=== PATIENT | male | born 1935 | race African-American/Black ===

== ENCOUNTER 2018-01-18 20:05 | Inpatient (IN) | payer MEDICARE, SELFPAY ==
[2018-01-18] VITALS (9 sets, daily range): BP systolic 80–146; BP diastolic 34–84; PULSE 67–87; RESP 24–28; TEMP 29.2–30.8; O2SAT 80–100; BMI 19.0
--- NOTE | 2018-01-18 20:16 | XR_ITS ---
XR chest AP HISTORY: ITS.REASON: weakness ORDERING PHYSICIAN: Jesus Arias MD PATIENT AGE: 82 years COMPARISON: 08/17/2017 FINDINGS: Study is very limited underpenetrated and rotated with multiple skin fold artifacts. There is normal heart size.. There is increased density in the right upper lobe laterally. This could be due to artifact or could be related to overlying pneumonia. Better quality exam suggested for further evaluation. IMPRESSION: Limited exam with possible right upper lobe pneumonia versus artifact
--- NOTE | 2018-01-18 20:16 | CT_ITS ---
CT head/brain wo con HISTORY: Continued, altered mental status, altered level consciousness, fall with weakness ITS.REASON: confused , weakness ORDERING PHYSICIAN: Jesus Arias MD PATIENT AGE: 82 years COMPARISON: 08/17/2017 TECHNIQUE: Axial images obtained without contrast. Brain and bone windows reviewed. All CT scans at the facility use one or more dose reduction, viz: automated exposure control; ma/kV adjustment per patient size (including targeted exams where dose is matched to indication; i.e. head); or iterative reconstruction technique. FINDINGS: No midline shift, mass effect, intracranial hemorrhage, hydrocephalus, or extra-axial fluid collection is evident. There is generalized atrophy. No midline shift, mass effect, intracranial hemorrhage, or hydrocephalus. Periventricular ischemic gliotic changes are present. There is old lacunar infarction in the left basal ganglia and posterior aspect of the caudate nucleus. The calvarium has an unremarkable appearance. No mastoid effusion. There is mild mucosal thickening of paranasal sinuses.. IMPRESSION: 1. No acute intracranial findings. 2. Atrophy with chronic ischemic changes with an old left-sided lacunar infarction. 3. Mild sinus disease.
[2018-01-18 20:29] LABS: ABG Base Excess -16.8 mmol/L (-2.4-2.3); ABG HCO3 11.5 mmhg (22.0-26.0); ABG Oxygen Saturation 97 % (90-100); ABG PCO2 31.1 mmhg (35.0-45.0); ABG TCO2 12.4 mmhg (23-27)
--- NOTE | 2018-01-18 20:31 | XR_ITS ---
XR pelvis 1-2V HISTORY: Fall with injury and pain ITS.REASON: fall ORDERING PHYSICIAN: Jesus Arias MD PATIENT AGE: 82 years COMPARISON: None FINDINGS: No acute fracture or dislocation apparent. Osteoarthritic changes are present at the hips. There is mild amount retained colonic feces. IMPRESSION: Osteoarthritis of the hips, no definite acute fracture
--- NOTE | 2018-01-18 20:31 | CT_ITS ---
CT cervical spine wo con INDICATION: Neck pain following injury ITS.REASON: fall ORDERING PHYSICIAN: Jesus Arias MD PATIENT AGE: 82 years COMPARISON: None TECHNIQUE: Axial images are obtained without contrast. Sagittal and coronal reformatted images are reviewed as well. All CT scans at the facility use one or more dose reduction, viz: automated exposure control; ma/kV adjustment per patient size (including targeted exams where dose is matched to indication; i.e. head); or iterative reconstruction technique. FINDINGS: There is normal alignment. No acute fracture or dislocation is evident. There is multilevel degenerative disc disease. There is diffuse Idiopathic skeletal hyperostosis from C2 to C7. C2-C3: Mild degenerative disc disease. Small central disc protrusion slightly eccentric towards the left. C3-C4: Mild degenerative disc disease. C4-C5: Degenerative disc disease. C5-C6: Degenerative disc disease with endplate hypertrophic change and facet and uncovertebral hypertrophy with bilateral foraminal narrowing. C6-C7: Degenerative disc disease with endplate osteophytes and moderate uncovertebral hypertrophy with moderate bilateral foraminal narrowing. C7-T1: Facet hypertrophic change with mild bilateral foraminal narrowing. Fibrotic changes are present in the lung apices. IMPRESSION: 1. No acute fracture. 2. Multilevel cervical spondylosis with degenerative disc disease, endplate hypertrophy, and facet arthropathy. Please see above for detail description at each level 3. DISH of the cervical spine
[2018-01-18 20:45] LABS: Basophils % 0.2 % (0.1-2.0); Eosinophils % 0.2 % (0.1-12.0); Hematocrit 39.9 % (42.0-52.0); Hemoglobin 12.1 g/dL (14.1-18.0); Lymphocytes # 0.4 K/mm3 (0.7-4.5); Mean Corpuscular HGB Conc 30.4 g/dL (31.8-35.4); Mean Corpuscular Hemoglobin 28.7 pg (27.0-31.2); Mean Corpuscular Volume 94.5 fl (80-94); Mean Platelet Volume 7.7 fl (7.4-10.4); Monocytes # 0.3 K/mm3 (0.1-1.0); Monocytes % 3.9 % (1.7-9.3); Neutrophils # 8.1 K/mm3 (1.8-7.8); Neutrophils % 91.7 % (37.0-80.0); Platelet Count 476 K/mm3 (142-424); Red Blood Count 4.22 M/mm3 (4.60-6.20); Red Cell Distribution Width 16.4 % (11.5-17.5); White Blood Count 8.8 K/mm3 (4.8-10.8)
[2018-01-18 20:47] LABS: MANUAL DIFFERENTIAL MANUAL DIFFERENTIAL (MANUAL DIFF)
[2018-01-18 21:08] LABS: Lactic Acid 4.7 mmol/L (0.4-2.0)
--- NOTE | 2018-01-18 21:09 | PC.NURSE ---
lactic acid 4.[address] Arias
[2018-01-18 21:18] LABS: Lymphocytes % 5 % (10-50); Neutrophils % 81 % (42-76); Platelet Estimate Slight Decrease; Total Cells Counted 100
[2018-01-18 21:19] LABS: Hypochromasia 1+; Rouleaux 1+; Toxic Granulation 1+
[2018-01-18 21:30] LABS: Alanine Aminotransferase 78 U/L (12-78); Albumin Level 3.6 gm/dL (3.4-5.0); Albumin/Globulin Ratio 0.7 (1.1-1.8); Alkaline Phosphatase 115 U/L (46-116); Anion Gap 28.4 mEq/L (5-15); Aspartate Amino Transferase 255 U/L (15-37); Bilirubin,Total 0.8 mg/dL (0.2-1.0); Calcium 9.3 mg/dL (8.5-10.1); Carbon Dioxide 17 mmol/L (21.0-32.0); Chloride 106 mmol/L (98-107); Creatine Kinase 4387 U/L (39-308); Creatinine Clearance Estimated 19 mL/min (0-300); Estimated Glomerular Filt Rate 22 ml/min (>60); GFR (African American) 26 ML/MIN (>60); Globulin 4.9 gm/dl (1.3-3.2); Potassium 4.4 mmoL/L (3.5-5.1); Sodium 147 mmol/L (136-145); Total Protein,Serum 8.5 gm/dL (6.4-8.2); Troponin I 0.02 ng/ml (0.00-0.06)
[2018-01-18 21:31] LABS: Blood Urea Nitrogen 86 mg/dL (7-18); Creatine Kinase MB 131.7 ng/ml (0.0-3.6); Glucose 48 mg/dL (74-106)
--- NOTE | 2018-01-18 21:34 | PC.NURSE ---
Assisted taking patient to ct and xray for chest and pelvis. Back to room at this time. Sahil paws connected, will continue monitoring pt
--- NOTE | 2018-01-18 21:36 | PC.NURSE ---
critical labs glucose 48, ckmb 131.7, ck 4387, results reported to Dr. Arias
--- NOTE | 2018-01-18 21:45 | HMH.EDWEAK ---
ED Disposition Clinical Impression: Renal insufficiency Rhabdomyolysis Qualifiers: Rhabdomyolysis type: non-traumatic Qualified Code(s): M62.82 - Rhabdomyolysis Hypothermia Qualifiers: Encounter type: initial encounter Qualified Code(s): T68.XXXA - Hypothermia, initial encounter Aspiration pneumonia Qualifiers: Aspiration pneumonia type: unspecified Laterality: right Lung location: lower lobe of lung Qualified Code(s): J69.0 - Pneumonitis due to inhalation of food and vomit Disposition: Admitted As Inpatient Condition on Discharge: Serious - Critical Care Critical Care Time: Yes Attestation: On 01/18/18, the high probability of a clinically significant, sudden or life threatening deterioration of the following system(s) required my full and direct attention, intervention and personal management. The time I documented below is in addition to time spent performing reported procedures but includes the following listed in this critical care notation. Total Critical Care Time: 60 Vital system(s) involved:: Respiratory Failure My critical care processes included: Assessment & monitoring of V/S, Initial and Re-exams, Data Review/Interpretation, Coordinating Care Medical Decision Making - Medical Records Medical records reviewed: Yes: I reviewed the patient's medical records. - Christofer Inquiry Pt receiving controlled substance: No Vital Signs: 01/18/18 20:06 01/18/18 20:28 01/18/18 21:20 Temperature 84.5 F L 84.5 F L 84.6 F L Temperature Source Rectal Rectal Rectal Pulse Rate [Apical] 86 83 75 Respiratory Rate 24 24 24 Blood Pressure [Left Arm] 142/63 146/83 110/54 Blood Pressure Mean [Left Arm] 89 104 72 Blood Pressure Source [Left Arm] Automatic Cuff Automatic Cuff Automatic Cuff Blood Pressure Position [Left Arm] Left Lateral Left Lateral Supine 02 Sat by Pulse Oximetry 80 L 80 L 97 Oxygen Delivery Method Nasal Cannula Nasal Cannula Nasal Cannula Oxygen Flow Rate (LPM) 3 3 3 01/18/18 21:59 01/18/18 23:16 01/19/18 00:00 Temperature 84.6 F L 87.4 F L Temperature Source Rectal Rectal Pulse Rate [Apical] 87 82 Respiratory Rate 24 Blood Pressure [Left Arm] 108/61 95/61 Blood Pressure Mean [Left Arm] 76 72 Blood Pressure Source [Left Arm] Automatic Cuff Blood Pressure Position [Left Arm] Supine 02 Sat by Pulse Oximetry 99 Oxygen Delivery Method Nasal Cannula Oxygen Flow Rate (LPM) 3 50 01/19/18 01:30 Temperature 89.6 F L Temperature Source Rectal Pulse Rate [Apical] 75 Respiratory Rate 18 Blood Pressure [Left Arm] 120/76 Blood Pressure Mean [Left Arm] 90 Blood Pressure Source [Left Arm] Automatic Cuff Blood Pressure Position [Left Arm] Supine 02 Sat by Pulse Oximetry 100 Oxygen Delivery Method Mechanical Ventilation Oxygen Flow Rate (LPM) 50 - Lab Data Lab results reviewed: Yes: I reviewed the patient's lab results. Lab Results 01/18/18 20:15: WBC 8.8, RBC 4.22 L, Hgb 12.1 L, Hct 39.9 L, MCV 94.5 H, MCH 28.7, MCHC 30.4 L, RDW 16.4, Plt Count 476 H, MPV 7.7, Neut % (Auto) 91.7 H, Lymph % (Auto) 4.0 L, [place] % (Auto) 3.9, Eos % (Auto) 0.2, Baso % (Auto) 0.2, Neut # (Auto) 8.1 H, Lymph # (Auto) 0.4 L, [place] # (Auto) 0.3, Eos # (Auto) 0.0, Baso # (Auto) 0.0, Total Counted 100, Neutrophils % (Manual) 81 H, Band Neutrophils % 14.0 H, Lymphocytes % (Manual) 5 L, Toxic Granulation 1+, Platelet Estimate Slight decrease, RBC Morphology Not Reportable, Hypochromasia 1+, Rouleaux 1+ 01/18/18 20:15: Sodium 147 H, Potassium 4.4, Chloride 106, Carbon Dioxide 17 L, Anion Gap 28.4 H, BUN 86 H, Creatinine 2.80 H, Estimated Creat Clear 19, Estimated GFR 22 L, Est GFR ( Amer) 26 L, Glucose 48 L, Calcium 9.3, Total Bilirubin 0.8, AST 255 H, ALT 78, Alkaline Phosphatase 115, Total Creatine Kinase 4387 H*, CK-MB (CK-2) 131.7 H*, CK-MB (CK-2) Rel Index 3.0, Troponin I 0.02, Total Protein 8.5 H, Albumin 3.6, Globulin 4.9 H, Albumin/Globulin Ratio 0.7 L 01/18/18 20:15: Lactic Acid 4.7 H 01/18/18 20:15: Fazal
--- NOTE | 2018-01-18 21:48 | CT_ITS ---
CT hip RT wo con HISTORY: Hip pain following injury ITS.REASON: fall/abn plain film ORDERING PHYSICIAN: Mitul Souza MD PATIENT AGE: 82 years TECHNIQUE: Axial images are obtained along with sagittal and coronal reformats without contrast. All CT scans at the facility use one or more dose reduction, viz: automated exposure control; ma/kV adjustment per patient size (including targeted exams where dose is matched to indication; i.e. head); or iterative reconstruction technique. COMPARISON: Radiograph of the same day FINDINGS: There are osteoarthritic changes of the right hip with subarticular cystic changes, decreasing the joint space, sclerosis, and osteophyte formation. No obvious fracture or dislocation is evident. Degenerative changes right SI joint and lower lumbar spine IMPRESSION: 1. No acute fracture. 2. Osteoarthritis of the right hip
[2018-01-18 21:49] LABS: POC Glucose,Bedside 108 mg/dL (70-110)
--- NOTE | 2018-01-18 21:49 | ED_ITS ---
ED Disposition Clinical Impression: Renal insufficiency Rhabdomyolysis Qualifiers: Rhabdomyolysis type: non-traumatic Qualified Code(s): M62.82 - Rhabdomyolysis Hypothermia Qualifiers: Encounter type: initial encounter Qualified Code(s): T68.XXXA - Hypothermia, initial encounter Aspiration pneumonia Qualifiers: Aspiration pneumonia type: unspecified Laterality: right Lung location: lower lobe of lung Qualified Code(s): J69.0 - Pneumonitis due to inhalation of food and vomit Disposition: Admitted As Inpatient Condition on Discharge: Serious - Critical Care Critical Care Time: Yes Attestation: On 01/18/18, the high probability of a clinically significant, sudden or life threatening deterioration of the following system(s) required my full and direct attention, intervention and personal management. The time I documented below is in addition to time spent performing reported procedures but includes the following listed in this critical care notation. Total Critical Care Time: 60 Vital system(s) involved:: Respiratory Failure My critical care processes included: Assessment & monitoring of V/S, Initial and Re-exams, Data Review/Interpretation, Coordinating Care Medical Decision Making - Medical Records Medical records reviewed: Yes: I reviewed the patient's medical records. - Christofer Inquiry Pt receiving controlled substance: No Vital Signs: 01/18/18 20:06 01/18/18 20:28 01/18/18 21:20 Temperature 84.5 F L 84.5 F L 84.6 F L Temperature Source Rectal Rectal Rectal Pulse Rate [Apical] 86 83 75 Respiratory Rate 24 24 24 Blood Pressure [Left Arm] 142/63 146/83 110/54 Blood Pressure Mean [Left Arm] 89 104 72 Blood Pressure Source [Left Arm] Automatic Cuff Automatic Cuff Automatic Cuff Blood Pressure Position [Left Arm] Left Lateral Left Lateral Supine 02 Sat by Pulse Oximetry 80 L 80 L 97 Oxygen Delivery Method Nasal Cannula Nasal Cannula Nasal Cannula Oxygen Flow Rate (LPM) 3 3 3 01/18/18 21:59 01/18/18 23:16 01/19/18 00:00 Temperature 84.6 F L 87.4 F L Temperature Source Rectal Rectal Pulse Rate [Apical] 87 82 Respiratory Rate 24 Blood Pressure [Left Arm] 108/61 95/61 Blood Pressure Mean [Left Arm] 76 72 Blood Pressure Source [Left Arm] Automatic Cuff Blood Pressure Position [Left Arm] Supine 02 Sat by Pulse Oximetry 99 Oxygen Delivery Method Nasal Cannula Oxygen Flow Rate (LPM) 3 50 01/19/18 01:30 Temperature 89.6 F L Temperature Source Rectal Pulse Rate [Apical] 75 Respiratory Rate 18 Blood Pressure [Left Arm] 120/76 Blood Pressure Mean [Left Arm] 90 Blood Pressure Source [Left Arm] Automatic Cuff Blood Pressure Position [Left Arm] Supine 02 Sat by Pulse Oximetry 100 Oxygen Delivery Method Mechanical Ventilation Oxygen Flow Rate (LPM) 50 - Lab Data Lab results reviewed: Yes: I reviewed the patient's lab results. Lab Results 01/18/18 20:15: WBC 8.8, RBC 4.22 L, Hgb 12.1 L, Hct 39.9 L, MCV 94.5 H, MCH 28.7, MCHC 30.4 L, RDW 16.4, Plt Count 476 H, MPV 7.7, Neut % (Auto) 91.7 H, Lymph % (Auto) 4.0 L, [place] % (Auto) 3.9, Eos % (Auto) 0.2, Baso % (Auto) 0.2, Neut # (Auto) 8.1 H, Lymph # (Auto) 0.4 L, [place] # (Auto) 0.3, Eos # (Auto) 0.0, Baso # (Auto) 0.0, Total Counted 100, Neutrophils % (Manual) 81
[2018-01-18 21:57] LABS: Microscopic, Urine URINE MICROSCOPIC (MICROSCOPIC)
[2018-01-18 21:59] LABS: Appearance,Urine CLEAR (Clear); Blood, Urine 3+ (Negative); Color,Urine YELLOW (Yellow); Glucose,Urine (UA) Negative (Negative); Ketones,Urine 1+ (Negative); Leukocyte Esterase,Urine Negative (Negative); Nitrate,Urine Negative (Negative); PH,Urine 5.5 (5.0-8.5); Protein,Urine 1+ (Negative); Specific Gravity, Urine >= 1.030 (1.005-1.030); Urobilinogen,Urine 0.2 EU/dl (0.2)
--- NOTE | 2018-01-18 22:00 | PC.NURSE ---
In attempting to change out pt's iv line, EMS iv dislodged, new iv established # 20 in l upper arm. lact ringers wide open going in each iv. pt back to ct at this time with Livia Golden assisting.
[2018-01-18 22:08] LABS: Bilirubin,Urine 1+ (Negative)
[2018-01-18 22:09] LABS: Acetone, Serum (Rapid) None Detected (None Detect)
[2018-01-18 22:23] LABS: Amorphous Sediment,Urine 2+ /lpf; Bacteria,Urine 1+ /lpf; Hyaline Casts,Urine Occasional #/lpf (0); Squamous Epithelial Cell,Urine Occasional #/hpf (0-5); WBC,Urine Occasional #/hpf (0-3)
--- NOTE | 2018-01-18 23:36 | PC.NURSE ---
dr cramer spoke with dr benjamin
--- NOTE | 2018-01-18 23:37 | PC.NURSE ---
dr cramer speaking with dr mayes
[2018-01-18 23:57] LABS: Allen's Test Patient Unable
[2018-01-18 23:58] LABS: Source Right Radial
[2018-01-18 23:59] LABS: ABG PH 7.19 mmol/L (7.35-7.45)
[2018-01-19] VITALS (41 sets, daily range): BP systolic 60–157; BP diastolic 0–80; PULSE 72–810; RESP 16–34; TEMP 31.6–36.4; O2SAT 45–100; BMI 21.0
[2018-01-19 00:35] LABS: Reflex Lactic Add Lactic Reflex
--- NOTE | 2018-01-19 00:37 | PC.NURSE ---
[facility] mins ago with Fitz Mohan Clinical Education Specialist to get manual bp 81/50. Pt in view of station, suddenly pt's heart rate dropped to 40. Entered room to find pt unresponsive. Hooked up to zoll monitor - heart rate [address] Arias intubated with 7.0 tube without incident. Oxygenation currently 81% with bagging in process. Blood gas obtained and chest xray is being taken at this time. Pt will be admitted to ICU. Awaiting order process.
--- NOTE | 2018-01-19 00:39 | XR_ITS ---
XR chest portable HISTORY: Respiratory failure, evaluate tube placement ITS.REASON: tube placement ORDERING PHYSICIAN: Mitul Souza MD PATIENT AGE: 82 years COMPARISON: 01/18/2018 FINDINGS: Unremarkable cardiovascular structures. Endotracheal tube has been placed. The tip is at the T3 level and could be advanced 1.5 to 2 cm. Overlying artifact from monitoring devices. Chronic changes are noted with patchy density in the right lung base which may be due to developing infiltrate. The previously noted density in the right upper lobe is no longer apparent and was related to artifact. IMPRESSION: 1. Endotracheal tube tip at the T3 level and may be advanced 1.5 to 2 cm. 2. Chronic changes with right lower lobe atelectasis or infiltrate
[2018-01-19 01:33] LABS: Lactic Acid Follow Up (RFLX 1) 6.7 (0.4-2.0)
--- NOTE | 2018-01-19 01:34 | PC.NURSE ---
DR Arias speaking with Dr. Souza, lab called with critical lactic acid. increase to 6.7
--- NOTE | 2018-01-19 02:12 | PC.NURSE ---
Pt intubated with 7.0 21 at [facility]. rate 16, 0 ps, 0 peep, Fi02 - 50, TV -500. NG tube being placed at this time. Vital sign improved.
--- NOTE | 2018-01-19 02:15 | PC.NURSE ---
Temp 89.6 rectally, Sahil paws initiated - pt attempts to take off. Prior to intubation pt kept taking off, explained needed to keep on because he was so cold, pt voiced, 'I'm not cold. Furrther enriquez, adivsed pt he may not feel cold but he really is. He asked for some water, ice chips given. Currently pt is not cooperative with care. Awaiting House for admit location to be designated.
--- NOTE | 2018-01-19 02:34 | PC.NURSE ---
NG attempted unsuccessfully x 2. MD reported to hold for now.
[2018-01-19 03:07] LABS: Reflex Lactic (2 hrs) Add Lactic Reflex
--- NOTE | 2018-01-19 03:25 | PC.NURSE ---
Continuing to monitor in ER. Sahil Paws in place with Temp slowly rising. Pt responding well to ativan, resting, no objective s/s of pain. Will continue monitoring.
[2018-01-19 04:24] LABS: Lactic Acid Follow up (RFLX 2) 4.6 (0.4-2.0)
--- NOTE | 2018-01-19 04:32 | PC.NURSE ---
Upon moving pt to floor 0350, attempted to get bp manually in each arm. Unable to obtain per left arm r/t iv. Right arm manually 80/50. Temp 92.6 rectally, resp 17 - vent setting 16. Pt responds to pain and eyes close and open with light touch on eyelids. Pt currently staring in an upward position. [employer] from lab called lastic result of 4.6.
[2018-01-19 04:58] LABS: Glucose,Random 61 mg/dL (70-110)
[2018-01-19 05:12] LABS: Troponin I 0.05 ng/ml (0.00-0.06)
--- NOTE | 2018-01-19 07:03 | PC.NURSE ---
admission process was difficult, blood pressure obtained after many attempts, then began to drop - started Dopamine with blood pressure rising quickly, weaned dopamine off with blood pressure holding for approximately 1&1/2hours began dropping again, Dopamine restarted. Body temp low and difficult to obtain oxygen saturation however blood gas showed oxygenation good arterial 02 - 97.3. Rectal temps have been climbing slowly from arrival in ED at 84.5, currently 93.0 rectally with sonya paws in place. Unknown how long pt was down - neighbor heard him knocking on the wall, checked on him and called 911. Checked fingerstick - to low to read - amp D50 given with fsbs coming up to 205 and D5ns replaced LR. Sepsis protocol followed with pt receiving 4 liter of fluids in ED and continued upon floor. Urine output from arrival until meter changed during admission was 250. Little 3-5 ml out following switch to urine meter. Pt bathed with caked feces removed with much effort. Tyson hose in place, staff at bs. Pt remained safe this shift. Shift report given at bs to Philippe Juan RN at this time.
--- NOTE | 2018-01-19 07:21 | PC.NURSE ---
Dopamine retarted at 14 mcg/kg/min r/t blood pressure dropping again, Philippe Day given information.
--- NOTE | 2018-01-19 08:04 | PC.NURSE ---
Addendum entered by Philippe Juan RN 01/19/18 08:21: DECREASED TO 12 MCG/KG/MIN. Original Note: DOPAMINE AT 14 MCG/KG/MIN WITH BP OF 166 SYSTOLIC. DRIP DECREASED AT THIS TIME TO 11 MCG/KG/MIN. BLOOD PRESSURE AT THIS TIME 0800 137/80. WILL CONTINUE TO MONITOR AND TITRATE NEEDED. ALL OTHER VSS.
--- NOTE | 2018-01-19 08:22 | PC.NURSE ---
DOPAMINE DECREASED FROM 12 MCG/KG/MIN TO 10 MCG/KG/MIN. BLOOD PRESSURE INCREASED TO 155/62 AT THIS TIME WILL CONTINUE TO MONITOR AND TITRATE PER PROTOCOL.
[2018-01-19 08:27] LABS: ABG Oxygen Saturation 97 % (90-100); ABG PH 7.21 mmol/L (7.35-7.45); ABG PO2 117.2 mmhg (80-100); ABG TCO2 17.2 mmhg (23-27)
[2018-01-19 08:28] LABS: ABG Base Excess -12.1 mmol/L (-2.4-2.3); ABG HCO3 15.7 mmhg (22.0-26.0); ABG Oxygen Saturation 99 % (90-100); ABG PCO2 40.1 mmhg (35.0-45.0); ABG PH 7.21 mmol/L (7.35-7.45); ABG PO2 176.5 mmhg (80-100); ABG TCO2 16.9 mmhg (23-27)
[2018-01-19 08:28] LABS: ABG Base Excess -17.1 mmol/L (-2.4-2.3); ABG Oxygen Saturation 99 % (90-100); ABG PO2 349.2 mmhg (80-100); ABG TCO2 15.7 mmhg (23-27)
--- NOTE | 2018-01-19 08:41 | PC.NURSE ---
DOPAMINE INCREASED TO 12MCG/KG/MIN R/T DROP IN BP TO 88/61. WILL CONTINUE TO MONITOR AND TITRATE NEEDED.
--- NOTE | 2018-01-19 08:50 | HMH.HP ---
*Admission Date: 01/18/18 *Chief complaint: altered mental status *History of present illness: Mr. Kam is an 82-year-old male who was brought to the emergency room by ambulance last night after being found in an altered state of consciousness in his home by neighbors last night. The patient is currently intubated and there is no family present to give history. History is obtained from the ER record and past medical records from the hospital. He apparently had been down at home for an unknown period of time. On arrival in the emergency room he was hypothermic with a temperature of 84. His CPK was elevated at 4300 with a normal troponin. BUN and creatinine were elevated. His lactic acid was elevated at 4.7. His white blood cell count was normal. CT scan of his head and neck showed nothing acute. Pelvic x-ray showed no hip fracture. Initial chest x-ray was inconclusive. At this point, his initial working diagnosis was rhabdomyolysis with dehydration and acute renal failure and possible sepsis. While waiting to be transferred to the floor, the patient became hypotensive and bradycardic with decreased respirations and was subsequently intubated while still in the emergency room. His initial blood gas was remarkable for a metabolic acidosis. After stabilization he was admitted to the down unit on the ventilator. The present time he is intubated and unresponsive. After arrival to the floor he was started on a dopamine drip for persistent hypotension. He has had essentially no urine output since being admitted to the floor despite receiving 4 L of fluid per sepsis protocol in the emergency room. Blood sugar was low at one point and he was given an amp of D50. He is on a Bear Hugger and rectal temperature is up to 94. 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 - Psychiatric History Expresses thoughts of harming self/others: None Suicide Plan Description: No Plan *Family Hx:: Unable to obtain Review of Systems - Review of Systems Review of systems:: unable to obtain Meds Home Medications Medication Instructions Recorded Confirmed Type Unobtainable [Unobtainable] 01/19/18 01/19/18 History Allergies Allergy/AdvReac Type Severity Reaction Status Date / Time No Known Allergies Allergy Verified 01/19/18 05:11 Exam Vital signs and Labs for Last 24 Hours: Temp Pulse Resp BP Pulse Ox 93 F L 810 H 25 H 84/48 97 01/19/18 06:24 01/19/18 06:24 01/19/18 06:24 01/19/18 06:24 01/19/18 07:08 Laboratory Results - last 24 hr 01/19/18 03:45: Lactic Acid Fup @ 2Hr 4.6 H 01/19/18 03:45: Troponin I 0.05 01/19/18 03:45: Random Glucose 61 L I & O for Last 24 hours: Intake & Output 01/16/18 01/17/18 01/18/18 01/19/18 11:59 11:59 11:59 11:59 Intake Total 5450 / 5450 Output Total 260 / 260 Balance 5190 / 5190 Weight 155 lb 7 oz - Constitutional Comments: intubated, unresponsive - *Routine HEENT Exam Head: Present: normocephalic, atraumatic ENT: Present: mucous membranes dry Comments: pupils equal and sluggishly reactive - *Routine Neck Exam Absent: carotid bruit, thyromegaly - *Routine Respiratory Exam Comments: coarse BS, equal bilaterally with no wheezes - *Routine Cardiovascular Exam Present: RRR. Absent: murmur - *Routine Abdominal Exam Present: soft. Absent: distended Comments: absent BS, no apparent tenderness - *Routine Exam Comments: Loco in place - *Routine Extremities Exam Absent: edema - *Routine Skin Exam Comments:
--- NOTE | 2018-01-19 09:22 | PC.NURSE ---
NEXT OF KIN MARYANN LORETTA NOTIFIED OF PT BEING ADMITTED TO ICU AND ON VENT. STS SHE IS HIS DAUGHTER AND POA, SHE WILL BE HERE SOON SHE CAN.
[2018-01-19 10:08] LABS: Lymphocytes # 0.5 K/mm3 (0.7-4.5); Monocytes # 0.5 K/mm3 (0.1-1.0); Platelet Count 295 K/mm3 (142-424)
[2018-01-19 10:26] LABS: Basophils % 0.5 % (0.1-2.0); Eosinophils % 0.2 % (0.1-12.0); Hematocrit 34.7 % (42.0-52.0); Lymphocytes % 8.6 K/mm3 (10-50); Mean Corpuscular HGB Conc 29.8 g/dL (31.8-35.4); Mean Corpuscular Hemoglobin 28.3 pg (27.0-31.2); Mean Corpuscular Volume 95.1 fl (80-94); Mean Platelet Volume 8.1 fl (7.4-10.4); Monocytes % 8.5 % (1.7-9.3); Neutrophils # 4.4 K/mm3 (1.8-7.8); Neutrophils % 82.2 % (37.0-80.0); Red Blood Count 3.65 M/mm3 (4.60-6.20); Red Cell Distribution Width 16.8 % (11.5-17.5); White Blood Count 5.4 K/mm3 (4.8-10.8)
[2018-01-19 10:27] LABS: Hemoglobin 10.3 g/dL (14.1-18.0)
[2018-01-19 10:39] LABS: Alanine Aminotransferase 141 U/L (12-78); Albumin Level 2.4 gm/dL (3.4-5.0); Albumin/Globulin Ratio 0.6 (1.1-1.8); Alkaline Phosphatase 104 U/L (46-116); Anion Gap 19.1 mEq/L (5-15); Aspartate Amino Transferase 440 U/L (15-37); Carbon Dioxide 21 mmol/L (21.0-32.0); Chloride 113 mmol/L (98-107); Creatinine Clearance Estimated 18 mL/min (0-300); Creatinine,Serum 3.13 mg/dL (0.70-1.30); Estimated Glomerular Filt Rate 19 ml/min (>60); GFR (African American) 23 ML/MIN (>60); Glucose 68 mg/dL (74-106); Sodium 147 mmol/L (136-145); Thyroid Stimulating Hormone 3.54 uIU/ml (0.358-3.740); Total Protein,Serum 6.4 gm/dL (6.4-8.2)
[2018-01-19 10:42] LABS: Creatine Kinase 6582 U/L (39-308)
[2018-01-19 10:44] LABS: Blood Urea Nitrogen 83 mg/dL (7-18); Potassium 6.1 mmoL/L (3.5-5.1)
[2018-01-19 10:56] LABS: Calcium 7.9 mg/dL (8.5-10.1)
--- NOTE | 2018-01-19 11:52 | HMH.PHAVTE ---
[facility] Pharmacy VTE Monitoring - Patient Demographics Admission date: 01/19/18 Report Date: 01/19/18 Time: 11:52 Allergies/Adverse Reactions: Patient Allergies No Known Allergies Allergy (Verified 01/19/18 05:11) Height: 1.83 m Weight: 70.505 kg Patient Problems: Current Active Problems Rhabdomyolysis (Acute) Renal insufficiency (Acute) Hypothermia (Acute) Aspiration pneumonia (Acute) - VTE Risk Labs: VTE Related Lab Results Hgb 10.3 g/dL (14.1-18.0) L D 01/19/18 09:25 Hct 34.7 % (42.0-52.0) L 01/19/18 09:25 Plt Count 295 K/mm3 (142-424) D 01/19/18 09:25 BUN 83 mg/dL (7-18) H 01/19/18 09:25 Creatinine 3.13 mg/dL (0.70-1.30) H 01/19/18 09:25 Estimated Creat Clear 18 mL/min (0-300) 01/19/18 09:25 Was VTE Risk Assessment Performed: Yes VTE Score: 7 VTE Risk Level: Moderate Risk - Prophylaxis VTE Prophylaxis Ordered?: Yes Types of VTE Prophylaxis: TEDS Knee High Location of Applied Device: Bilateral Lower Extremeties - VTE Diagnosis Confirmed Treatment or plan recommended: Continue Current Treatment
[2018-01-19 12:42] LABS: Glucose,Random 43 mg/dL (70-110)
--- NOTE | 2018-01-19 12:45 | HMH.ACPN2 ---
Internal Medicine - PN: Subj *Date: 01/19/18 *Time: 15:42 Interval history: Two daughters have arrived from [place] and I have updated them on his condition which remains quite guarded. He remains hypotensive despite continued titration of his dopamine drip. He has had essentially no urine output. Rhythm has deteriorated to a bundle branch block. He remains unresponsive. Exam Vital signs and Labs for Last 24 Hours: Temp Pulse Resp BP Pulse Ox 95.8 F L 94 H 20 86/37 45 L 01/19/18 11:04 01/19/18 11:35 01/19/18 11:35 01/19/18 11:35 01/19/18 11:35 Laboratory Results - last 24 hr 01/19/18 03:45: Lactic Acid Fup @ 2Hr 4.6 H 01/19/18 03:45: Troponin I 0.05 01/19/18 03:45: Random Glucose 61 L 01/19/18 09:25: WBC 5.4 D, RBC 3.65 L, Hgb 10.3 L D, Hct 34.7 L, MCV 95.1 H, MCH 28.3, MCHC 29.8 L, RDW 16.8, Plt Count 295 D, MPV 8.1, Neut % (Auto) 82.2 H, Lymph % (Auto) 8.6 L, [place] % (Auto) 8.5, Eos % (Auto) 0.2, Baso % (Auto) 0.5, Neut # (Auto) 4.4, Lymph # (Auto) 0.5 L, [place] # (Auto) 0.5, Eos # (Auto) 0.0, Baso # (Auto) 0.0 01/19/18 09:25: Sodium 147 H, Potassium 6.1 H* D, Chloride 113 H, Carbon Dioxide 21 D, Anion Gap 19.1 H, BUN 83 H, Creatinine 3.13 H, Estimated Creat Clear 18, Estimated GFR 19 L*, Est GFR ( Amer) 23 L, Glucose 68 L D, Calcium 7.9 L D, Total Bilirubin 1.0, AST 440 H* D, ALT 141 H D, Alkaline Phosphatase 104, Total Creatine Kinase 6582 H* D, Total Protein 6.4, Albumin 2.4 L D, Globulin 4.0 H, Albumin/Globulin Ratio 0.6 L, TSH 3.54 01/19/18 12:15: Random Glucose 43 L* D I & O for Last 24 hours: Intake & Output 01/17/18 01/18/18 01/19/18 01/20/18 11:59 11:59 11:59 11:59 Intake Total 5565 / 5565 Output Total 260 / 260 Balance 5305 / 5305 Weight 155 lb 7 oz - Constitutional Comments: unresponsive on the ventilator - *Routine Respiratory Exam Comments: coarse BS, equal bilaterally, no wheezes - *Routine Cardiovascular Exam Present: RRR - *Routine Abdominal Exam Comments: slightly distended with no BS. No apparent tenderness - *Routine Extremities Exam Absent: edema Assessment and Plan (1) Metabolic acidosis Current visit: Yes Status: Acute Category: Medical Code(s): E87.2 - Acidosis (2) Rhabdomyolysis Current visit: Yes Status: Acute Qualifiers: Rhabdomyolysis type: non-traumatic Qualified Code(s): M62.82 - Rhabdomyolysis Category: Medical Code(s): M62.82 - Rhabdomyolysis (3) Hypothermia Current visit: Yes Status: Acute Qualifiers: Encounter type: initial encounter Qualified Code(s): T68.XXXA - Hypothermia, initial encounter Category: Medical Code(s): T68.XXXA - Hypothermia, initial encounter (4) Hypotension Current visit: Yes Status: Acute Category: Medical Code(s): I95.9 - Hypotension, unspecified (5) Aspiration pneumonia Current visit: Yes Status: Acute Qualifiers: Aspiration pneumonia type: unspecified Laterality: right Lung location: lower lobe of lung Qualified Code(s): J69.0 - Pneumonitis due to inhalation of food and vomit Category: Medical Code(s): J69.0 - Pneumonitis due to inhalation of food and vomit (6) Acute on chronic renal insufficiency Current visit: Yes Status: Acute Category: Medical Code(s): N28.9 - Disorder of kidney and ureter, unspecified; N18.9 - Chronic kidney disease, unspecified (7) Hx of essential hypertension Current visit: Yes Status: Acute Category: Medical Code(s): Z86.79 - Personal history of other diseases of the circulatory system (8) Hypovolemia Current visit: Yes Status: Acute Category: Medical Code(s): E86.1 - Hypovolemia (9) Hypoglycemia Current visit: Yes Status: Acute Category: Medical Code(s): E16.2 - Hypoglycemia, unspecified (10) On mechanically assisted ventilation Current visit: Yes Status: Acute Category: Medical Code(s): Z99.11 - Dependence on respirator [ventilator] status
--- NOTE | 2018-01-19 12:48 | P.PN_ITS ---
Internal Medicine - PN: Subj *Date: 01/19/18 *Time: 15:42 Interval history: Two daughters have arrived from [place] and I have updated them on his condition which remains quite guarded. He remains hypotensive despite continued titration of his dopamine drip. He has had essentially no urine output. Rhythm has deteriorated to a bundle branch block. He remains unresponsive. Exam Vital signs and Labs for Last 24 Hours: Temp Pulse Resp BP Pulse Ox 95.8 F L 94 H 20 86/37 45 L 01/19/18 11:04 01/19/18 11:35 01/19/18 11:35 01/19/18 11:35 01/19/18 11:35 Laboratory Results - last 24 hr 01/19/18 03:45: Lactic Acid Fup @ 2Hr 4.6 H 01/19/18 03:45: Troponin I 0.05 01/19/18 03:45: Random Glucose 61 L 01/19/18 09:25: WBC 5.4 D, RBC 3.65 L, Hgb 10.3 L D, Hct 34.7 L, MCV 95.1 H, MCH 28.3, MCHC 29.8 L, RDW 16.8, Plt Count 295 D, MPV 8.1, Neut % (Auto) 82.2 H , Lymph % (Auto) 8.6 L, [place] % (Auto) 8.5, Eos % (Auto) 0.2, Baso % (Auto) 0.5, Neut # (Auto) 4.4, Lymph # (Auto) 0.5 L, [place] # (Auto) 0.5, Eos # (Auto) 0.0, Baso # (Auto) 0.0 01/19/18 09:25: Sodium 147 H, Potassium 6.1 H* D, Chloride 113 H, Carbon Dioxide 21 D, Anion Gap 19.1 H, BUN 83 H, Creatinine 3.13 H, Estimated Creat Clear 18, Estimated GFR 19 L*, Est GFR ( Amer) 23 L, Glucose 68 L D, Calcium 7.9 L D, Total Bilirubin 1.0, AST 440 H* D, ALT 141 H D, Alkaline Phosphatase 104, Total Creatine Kinase 6582 H* D, Total Protein 6.4, Albumin 2.4 L D, Globulin 4.0 H, Albumin/Globulin Ratio 0.6 L, TSH 3.54 01/19/18 12:15: Random Glucose 43 L* D I & O for Last 24 hours: Intake & Output 01/17/18 01/18/18 01/19/18 01/20/18 11:59 11:59 11:59 11:59 Intake Total 5565 / 5565 Output Total 260 / 260 Balance 5305 / 5305 Weight 155 lb 7 oz - Constitutional Comments: unresponsive on the ventilator - *Routine Respiratory Exam Comments: coarse BS, equal bilaterally, no wheezes - *Routine Cardiovascular Exam Present: RRR - *Routine Abdominal Exam Comments: slightly distended with no BS. No apparent tenderness - *Routine Extremities Exam Absent: edema Assessment and Plan (1) Metabolic acidosis Current visit: Yes Status: Acute Category: Medical Code(s): E87.2 - Acidosis (2) Rhabdomyolysis Current visit: Yes Status: Acute Qualifiers: Rhabdomyolysis type: non-traumatic Qualified Code(s): M62.82 - Rhabdomyolysis Category: Medical Code(s): M62.82 - Rhabdomyolysis (3) Hypothermia Current visit: Yes Status: Acute Qualifiers: Encounter type: initial encounter Qualified Code(s): T68.XXXA - Hypothermia , initial encounter Category: Medical Code(s): T68.XXXA - Hypothermia, initial encounter (4) Hypotension Current visit: Yes Status: Acute Category: Medical Code(s): I95.9 - Hypotension, unspecified (5) Aspiration pneumonia Current visit: Yes Status: Acute Qualifiers: Aspiration pneumonia type: unspecified Laterality: right Lung location: lower lobe of lung Qualified Code(s): J69.0 - Pneumonitis due to inhalation of food and vomit Category: Medical Code(s): J69.0 - Pneumonitis due to inhalation of food and vomit (6) Acute on chronic renal insufficiency Current visit: Yes Status: Acute Category: Medical Code(s): N28.9 - Disorder of kidney and ureter, unspecified; N18.9 - Chronic kidney disease, unspecified (7) Hx of essential hypertension Current visit:
--- NOTE | 2018-01-19 13:18 | PC.NURSE ---
DURING 1200 ASSESSMENT, PT NOTED TO BE ONLY RESPONSIVE TO PAINFUL STIMULI, A DECREASE SINCE THIS MORNINGS ASSESSMENT. ALSO THE PT NOTED TO HAVE CHANGE IN CARDIAC RHYTHM FROM SINUS TACH TO SINUS RHYTHM WITH IVCD AND 1ST DEGREE BLOCK. UNABLE TO GET PT BLOOD PRESSURE AT 1145 VIA AUTOMATIC CUFF. MANUAL PRESSURE TAKEN IN THE RIGHT ARM AT 70/PALP. DOPAMINE INCREASED TO 18MCG/KG/MIN. ABDOMEN NOTED TO BE MORE FIRM THAN THIS AM ASSESSMENT. PT RADAIL AND PEDAL PULSES NOW DOPPLER ONLY. REPEAT BP AT 1200 AGAIN UNABLE TO OBTAIN AUTOCUFF, MANUAL NOW 60/PALP. DOPAMINE ONCE AGAIN INCREASED NOW AT 20 MCG/KG/MIN. GLUCOSE FS ALSO CHECKED AND TOO LOW TO READ. PT GIVEN 1 AMP D50 VIA [address] RAC. [address] LAB OBTAINED. DR. PISANO AT BEDSIDE AND UPDATED OF PT CONDITION CHANGE. 1203 BP READING 97/40 VIA AUTOCUFF WITH A MANUAL PRESSURE TO CORRELATE. 1220 BLOOD PRESSURE AGAIN UNABLE TO OBTAIN VIA AUTOCUFF, MANUAL 80/PALP. COPAMINE INCREASED TO 22MCG/KG/MIN. 1225 GLUCOSE CALLED FROM LAB 43. 1235 BP READING 80/PALP DOPAMINE INCREASED TO 24MCG/KG/MIN MAX DOSING PER PROTOCOL. INFORMED DR. PISANO OF THIS AND STS THAT PT FAMILY DOESN'T WISH TO BE AGGRESSIVE AT THIS TIME. STATED TO HIM THEY WISHED HIM TO BE A DNR. INFORMED ALSO OF THE GLUCOSE OF 43 VIA LAB. INSTRUCTED TO RECHECK IN 30 MIN IF NO CHANGE GIVE ANOTHER AMP OF D50. ALSO IF BP CONTINUE TO REMAIN LOW TO INFUSE A 500 ML BOLUS OF NS. 1250 BP RECHECKED AND REMAINS 80/PALP 500 ML BOLUS STARTED ALONG WITH SCHEDULED CEFEPIME. GLUCOSE FS REPEATED AND AGAIN LEVEL TO LOW TO READ. PT GIVEN 1 AMP D50 AND STAT LAB ORDERED. 1310 BLOOD PRESSURE RECHECKED AND NOW 100/PALP WITH BOLUS INFUSING. DAUGHTERS REMAIN AT BEDSIDE AND UPDATED ON PT CONDITION IT CHANGES. PT CONTINUE TO BE SINUS RHYTHM WITH IVCD AND 1ST DEGREE BLOCK TO SINUS ARRYTHMIA WITH IVCD AND 1ST DEGREE BLOCK. WILL UPDATE DR. PISANO OF PT GLUCOSE ONCE RESULTED. HR 89, PT REMAINS INTUBATED AND VENTILATED AT 45% FIO2 WITH 0 PEEP AND 0 PRESSURE SUPPORT AND RATE OF 16. RESP CURRENTLY 20. RECTAL TEMP 97.[address] PAWS IN PL[address]. PT REMAINS ONLY RESPONSIVE TO PAINFUL STIMULI. WILL CONTINUE TO MONITOR. RN REMAINS AT BS.
[2018-01-19 13:45] LABS: Glucose,Random 129 mg/dL (70-110)
--- NOTE | 2018-01-19 14:11 | HMH.ACPN2 ---
Internal Medicine - PN: Subj *Date: 01/19/18 *Time: 14:11 Interval history: Patient's rhythm deteriorated to asystole and he was found w/o BP, pulse or heart tones and was pronounced at 1405 Exam Vital signs and Labs for Last 24 Hours: Temp Pulse Resp BP Pulse Ox 95.8 F L 90 20 86/37 45 L 01/19/18 11:04 01/19/18 12:00 01/19/18 11:35 01/19/18 11:35 01/19/18 11:35 Laboratory Results - last 24 hr 01/19/18 03:45: Lactic Acid Fup @ 2Hr 4.6 H 01/19/18 03:45: Troponin I 0.05 01/19/18 03:45: Random Glucose 61 L 01/19/18 09:25: WBC 5.4 D, RBC 3.65 L, Hgb 10.3 L D, Hct 34.7 L, MCV 95.1 H, MCH 28.3, MCHC 29.8 L, RDW 16.8, Plt Count 295 D, MPV 8.1, Neut % (Auto) 82.2 H, Lymph % (Auto) 8.6 L, [place] % (Auto) 8.5, Eos % (Auto) 0.2, Baso % (Auto) 0.5, Neut # (Auto) 4.4, Lymph # (Auto) 0.5 L, [place] # (Auto) 0.5, Eos # (Auto) 0.0, Baso # (Auto) 0.0 01/19/18 09:25: Sodium 147 H, Potassium 6.1 H* D, Chloride 113 H, Carbon Dioxide 21 D, Anion Gap 19.1 H, BUN 83 H, Creatinine 3.13 H, Estimated Creat Clear 18, Estimated GFR 19 L*, Est GFR ( Amer) 23 L, Glucose 68 L D, Calcium 7.9 L D, Total Bilirubin 1.0, AST 440 H* D, ALT 141 H D, Alkaline Phosphatase 104, Total Creatine Kinase 6582 H* D, Total Protein 6.4, Albumin 2.4 L D, Globulin 4.0 H, Albumin/Globulin Ratio 0.6 L, TSH 3.54 01/19/18 12:15: Random Glucose 43 L* D 03/24/18 13:30: Random Glucose 129 H I & O for Last 24 hours: Intake & Output 01/17/18 01/18/18 01/19/18 01/20/18 11:59 11:59 11:59 11:59 Intake Total 5565 / 5565 Output Total 260 / 260 Balance 5305 / 5305 Weight 155 lb 7 oz Assessment and Plan (1) Metabolic acidosis Current visit: Yes Status: Acute Category: Medical Code(s): E87.2 - Acidosis (2) Rhabdomyolysis Current visit: Yes Status: Acute Qualifiers: Rhabdomyolysis type: non-traumatic Qualified Code(s): M62.82 - Rhabdomyolysis Category: Medical Code(s): M62.82 - Rhabdomyolysis (3) Hypothermia Current visit: Yes Status: Acute Qualifiers: Encounter type: initial encounter Qualified Code(s): T68.XXXA - Hypothermia, initial encounter Category: Medical Code(s): T68.XXXA - Hypothermia, initial encounter (4) Hypotension Current visit: Yes Status: Acute Category: Medical Code(s): I95.9 - Hypotension, unspecified (5) Aspiration pneumonia Current visit: Yes Status: Acute Qualifiers: Aspiration pneumonia type: unspecified Laterality: right Lung location: lower lobe of lung Qualified Code(s): J69.0 - Pneumonitis due to inhalation of food and vomit Category: Medical Code(s): J69.0 - Pneumonitis due to inhalation of food and vomit (6) Acute on chronic renal insufficiency Current visit: Yes Status: Acute Category: Medical Code(s): N28.9 - Disorder of kidney and ureter, unspecified; N18.9 - Chronic kidney disease, unspecified (7) Hx of essential hypertension Current visit: Yes Status: Acute Category: Medical Code(s): Z86.79 - Personal history of other diseases of the circulatory system (8) Hypovolemia Current visit: Yes Status: Acute Category: Medical Code(s): E86.1 - Hypovolemia - Assessment and plan all Dx Assessment and Plan for all problems:: Family at beside. Body will be released to home of choice.
--- NOTE | 2018-01-19 14:16 | P.PN_ITS ---
Internal Medicine - PN: Subj *Date: 01/19/18 *Time: 14:11 Interval history: Patient's rhythm deteriorated to asystole and he was found w/o BP, pulse or heart tones and was pronounced at 1405 Exam Vital signs and Labs for Last 24 Hours: Temp Pulse Resp BP Pulse Ox 95.8 F L 90 20 86/37 45 L 01/19/18 11:04 01/19/18 12:00 01/19/18 11:35 01/19/18 11:35 01/19/18 11:35 Laboratory Results - last 24 hr 01/19/18 03:45: Lactic Acid Fup @ 2Hr 4.6 H 01/19/18 03:45: Troponin I 0.05 01/19/18 03:45: Random Glucose 61 L 01/19/18 09:25: WBC 5.4 D, RBC 3.65 L, Hgb 10.3 L D, Hct 34.7 L, MCV 95.1 H, MCH 28.3, MCHC 29.8 L, RDW 16.8, Plt Count 295 D, MPV 8.1, Neut % (Auto) 82.2 H , Lymph % (Auto) 8.6 L, [place] % (Auto) 8.5, Eos % (Auto) 0.2, Baso % (Auto) 0.5, Neut # (Auto) 4.4, Lymph # (Auto) 0.5 L, [place] # (Auto) 0.5, Eos # (Auto) 0.0, Baso # (Auto) 0.0 01/19/18 09:25: Sodium 147 H, Potassium 6.1 H* D, Chloride 113 H, Carbon Dioxide 21 D, Anion Gap 19.1 H, BUN 83 H, Creatinine 3.13 H, Estimated Creat Clear 18, Estimated GFR 19 L*, Est GFR ( Amer) 23 L, Glucose 68 L D, Calcium 7.9 L D, Total Bilirubin 1.0, AST 440 H* D, ALT 141 H D, Alkaline Phosphatase 104, Total Creatine Kinase 6582 H* D, Total Protein 6.4, Albumin 2.4 L D, Globulin 4.0 H, Albumin/Globulin Ratio 0.6 L, TSH 3.54 01/19/18 12:15: Random Glucose 43 L* D 03/24/18 13:30: Random Glucose 129 H I & O for Last 24 hours: Intake & Output 01/17/18 01/18/18 01/19/18 01/20/18 11:59 11:59 11:59 11:59 Intake Total 5565 / 5565 Output Total 260 / 260 Balance 5305 / 5305 Weight 155 lb 7 oz Assessment and Plan (1) Metabolic acidosis Current visit: Yes Status: Acute Category: Medical Code(s): E87.2 - Acidosis (2) Rhabdomyolysis Current visit: Yes Status: Acute Qualifiers: Rhabdomyolysis type: non-traumatic Qualified Code(s): M62.82 - Rhabdomyolysis Category: Medical Code(s): M62.82 - Rhabdomyolysis (3) Hypothermia Current visit: Yes Status: Acute Qualifiers: Encounter type: initial encounter Qualified Code(s): T68.XXXA - Hypothermia , initial encounter Category: Medical Code(s): T68.XXXA - Hypothermia, initial encounter (4) Hypotension Current visit: Yes Status: Acute Category: Medical Code(s): I95.9 - Hypotension, unspecified (5) Aspiration pneumonia Current visit: Yes Status: Acute Qualifiers: Aspiration pneumonia type: unspecified Laterality: right Lung location: lower lobe of lung Qualified Code(s): J69.0 - Pneumonitis due to inhalation of food and vomit Category: Medical Code(s): J69.0 - Pneumonitis due to inhalation of food and vomit (6) Acute on chronic renal insufficiency Current visit: Yes Status: Acute Category: Medical Code(s): N28.9 - Disorder of kidney and ureter, unspecified; N18.9 - Chronic kidney disease, unspecified (7) Hx of essential hypertension Current visit: Yes Status: Acute Category: Medical Code(s): Z86.79 - Personal history of other diseases of the circulatory system (8) Hypovolemia Current visit: Yes Status: Acute Category: Medical Code(s): E86.1 - Hypovolemia - Assessment and plan all Dx Assessment and Plan for all problems:: Family at beside. Body will be released to home of choice.
--- NOTE | 2018-01-19 15:07 | PC.NURSE ---
late entry note: at 1340 this rn gave report to Santiago Cadena to step of the floor. at 1357 this RN was called into the room stating the pt had went into asystole. Upon auscultation no heart tones were noted. No palpable pulse or blood pressure obtained. Doppler utilized to obtain a carotid pulse with no result. Dr. Souza paged and updated on pt deterioration. at 1400 Dr. Souza at bedside to assess pt and speak with family. Pt found by Dr. Souza to have no heart sounds or pulse. Time of at [address] Souza. NOLBERTO contacted at 1410 while pt still being artificially ventilated. Ruled out by NOLBERTO for donation by Sonia Piña #[phone]. Respiratory called and ventilator ceased. Pt family stepped out for completion of post mortem care. Pt extubated, all IV's discontinued along with howe catheter. Alexandro Cheung contacted prior r/t pt admission <24 hours. Per Jonatan ok to release to home of families choosing. At this time pt family remains at bedside. Instructed they would like [facility] for home choice. Jonatan contacted and sts he will be up to get pt. Awaiting arrival of home. Family remains at bedside. Will continue to update family as needed.
[2018-01-19 19:11] LABS: POC Glucose,Bedside 205 mg/dL (70-110)
[2018-01-19 19:11] LABS: POC Glucose,Bedside 67 mg/dL (70-110)
--- NOTE | 2018-01-20 11:33 | HMH.DCSUM ---
General - General Admission date: 01/18/18 <Scarlett Carranza - 01/20/18 11:40> Discharge date: 01/19/18 <Scarlett Carranza - 01/20/18 11:40> HPI HPI: Mr. Kam is an 82-year-old male who was brought to the emergency room by ambulance last night after being found in an altered state of consciousness in his home by neighbors last night. The patient is currently intubated and there is no family present to give history. History is obtained from the ER record and past medical records from the hospital. He apparently had been down at home for an unknown period of time. On arrival in the emergency room he was hypothermic with a temperature of 84. His CPK was elevated at 4300 with a normal troponin. BUN and creatinine were elevated. His lactic acid was elevated at 4.7. His white blood cell count was normal. CT scan of his head and neck showed nothing acute. Pelvic x-ray showed no hip fracture. Initial chest x-ray was inconclusive. At this point, his initial working diagnosis was rhabdomyolysis with dehydration and acute renal failure and possible sepsis. While waiting to be transferred to the floor, the patient became hypotensive and bradycardic with decreased respirations and was subsequently intubated while still in the emergency room. His initial blood gas was remarkable for a metabolic acidosis. After stabilization he was admitted to the down unit on the ventilator. The present time he is intubated and unresponsive. After arrival to the floor he was started on a dopamine drip for persistent hypotension. He has had essentially no urine output since being admitted to the floor despite receiving 4 L of fluid per sepsis protocol in the emergency room. Blood sugar was low at one point and he was given an amp of D50. He is on a Bear Hugger and rectal temperature is up to 94. <Scarlett Carranza - 01/20/18 11:40> Hospital Course Hospital Course: He was admitted to the step down unit on mechanical ventilation. He was treated aggressively with IV fluids, IV antibiotics and pressors. He still appeared to be dry with persistent hypotension and oliguria. Etiology of his metabolic acidosis was not clear but was likely related to rhabdomyolysis and possible sepsis. Repeat chest x-ray at the time of his intubation did show a possible right lower lobe pneumonia raising the possibility of aspiration. Sputum and blood cultures were obtained. He was empirically started on cefepime and Clindamycin. He remained hypotensive despite continued titration of his dopamine drip. He had essentially no urine output. Rhythm deteriorated to a bundle branch block. He remained unresponsive. After discussion with his daughters regarding the grave nature of his illness they seemed to have realistic expectations regarding his poor prognosis. They were in agreement that he would not wish to have any life prolonging measures taken although they understood the necessity of him being intubated in the emergency room. They wanted to continue treatment of his pneumonia, acidosis, hypotension, and hypovolemia but withhold CPR, electrical cardioversion, or tube feedings. DNR forms were completed. Patient's rhythm deteriorated to asystole and he was found w/o BP, pulse or heart tones and was pronounced at 1405 on 01/19/18. <Scarlett Carranza - 01/20/18 11:40> Objective Vital signs: Temp Pulse Resp BP Pulse Ox 97.6 F 89 20 100/0 45 L 01/19/18 13:10 01/19/18 16:46 01/19/18 13:10 01/19/18 13:10 01/19/18 11:35 <Mitul Souza - 01/21/18 21:48> Temp Pulse Resp BP Pulse Ox 97.6 F 89 20 100/0 45 L 01/19/18 13:10 01/19/18 16:46 01/19/18 13:10 01/19/18 13:10 01/19/18 11:35 <Scarlett Carranza - 01/20/18 11:40> Narrative: - Constitutional Comments: intubated, unresponsive - *Routine HEENT Exam Head: Present: normocephalic, atraumatic ENT: Present: mucous membranes dry Comments: pupils equal and sluggishly reactive - *Routi
[2018-01-21 07:45] LABS: POC Glucose,Bedside < 40 mg/dL (70-110)
[2018-01-21 07:45] LABS: POC Glucose,Bedside < 40 mg/dL (70-110)
[2018-01-21 07:45] LABS: POC Glucose,Bedside < 40 mg/dL (70-110)
[2018-01-21 07:45] LABS: POC Glucose,Bedside < 40 mg/dL (70-110)
[2018-01-21 07:45] LABS: POC Glucose,Bedside < 40 mg/dL (70-110)
[2018-01-21 10:58] LABS: Allen's Test Patient Unable; Oxygen 45% %; Source Right Radial; Tidal Volume 500; Vent Rate 16
[2018-01-21 11:00] LABS: Allen's Test Patient Unable; Oxygen 50% %; Source Left Radial; Tidal Volume 500; Vent Rate 16
[2018-01-21 11:02] LABS: Allen's Test Patient Unable; Oxygen ROOM AIR %; Source Right Radial
[2018-01-21 11:03] LABS: ABG PH 7.02 mmol/L (7.35-7.45)
== END 2018-01-19 14:05 | disposition expired | DRG 208 ==
LOC: ER 23:31 → ICU 01-19 02:32 → 2ND 01-19 04:04 → ICU 01-19 13:25
PROVIDERS: Admitting Provider Family Medicine; Emergency Provider Emergency Medicine; Visit Provider Family Medicine
DX: J96.90 Respiratory failure, unspecified, unspecified whether with hypoxia or hypercapnia (principal); J69.0 Pneumonitis due to inhalation of food and vomit; T68.XXXA Hypothermia, initial encounter; E87.2 Acidosis; I95.9 Hypotension, unspecified; E87.5 Hyperkalemia; N28.9 Disorder of kidney and ureter, unspecified; E86.1 Hypovolemia; E16.2 Hypoglycemia, unspecified
CPT/HCPCS: 31500; 94002; 36415; 70450; 71045; 72125; 72170; 73700; 80053; 81001; 82009; 82550; 82553; 82803; 82947; 82962; 83605; 84443; 84484; 85007; 85025; 87040; 87070; 87077; 87205; 93041; 96365; 96366; 96367; 96375; 99285